=== PATIENT | male | born 2000 | race Caucasian/White ===

== ENCOUNTER 2022-03-02 14:37 | Emergency (ER) | payer OTHER | END 2022-03-02 20:50 | disposition left against medical advice (07) | LOC: JD.ED 14:37 | DX: Z53.21 Procedure and treatment not carried out due to patient leaving prior to being seen by health care provider (principal) ==

== ENCOUNTER 2022-03-03 11:16 | Emergency (ER) | payer OTHER | END 2022-03-03 12:00 | disposition home or self-care (01) | LOC: JD.ED 11:16 | DX: K08.89 Other specified disorders of teeth and supporting structures (principal); Z88.1 Allergy status to other antibiotic agents | CPT/HCPCS: 99282 ==